=== PATIENT | female | born 1940 | race Caucasian/White ===

== ENCOUNTER 2021-07-15 18:38 | Inpatient (IN) ==
[2021-07-15] MEDS ORDERED: ASPIRIN CHEW 324 MG PO STA (18:44)
--- NOTE | 2021-07-15 18:52 | Emergency Department Note ---
Impression & Plan Retrosternal chest pain, Nausea, Diaphoresis ED Provider Note INFORMANT: Patient and EMS ED PROVIDER(S): Don Finch MD CHIEF COMPLAINT: Chest pain PLAN: Disposition: Admitted Condition: Good Outpatient prescription management: none Referral: None MEDICAL DECISION MAKING: Patient presented after about 3 hours of chest pain. It was resolved per EMS. EMS and our ECG did not reveal any ST elevation or depression. The patient's blood work was obtained. Chest x-ray was negative. She had a unremarkable CBC, chemistry panel, D-dimer, LFTs, and troponin. Patient did have Covid a month ago. No evidence of thrombolic disease by blood testing or chest x-ray. The patient was given aspirin. On reassessment she was doing well. She did not have any chest pain. The patient and I discussed the need for further management in the hospital given the significant description of the episode. Patient was in agreement. Consultation was made with Dr. Dennys Perkins of the [facility] service. Patient was evaluated in the ER for further management. Triage Nursing notes reviewed and agree them. Vital Signs: reviewed and remarkable for mild hypertension Differential diagnosis: Cardiac ischemia, aortic dissection, pulmonary embolism, pneumothorax, pneumonia, pericarditis, myocarditis, esophageal rupture, GERD, cholecystitis, pancreatitis, musculoskeletal, as well as other pathologies. Diagnostics interpreted by me: EC Lead ECG performed and revealed Normal sinus rhythm at 71, normal [place], QRS normal. No elevation or depression. No PACs or PVCs Cardiac Monitoring: Cardiac monitoring ordered by me: The patient was placed on continuous cardiac monitoring and observed. It revealed a normal sinus rhythm at 69 beats per minute without ectopy or evidence of dysrhythmia. Imaging studies: Chest x-ray. Findings: A chest x-ray was performed and revealed no pneumothorax, effusion, infiltrate, pulmonary edema, free air under the diaphragm, or wide mediastinum. Impression: No acute disease. HPI: The patient is a 81 year old female who presents to the Emergency Room with complaints of chest pain. This started 1530 hrs. and is resolved after about 3 hours in duration. The patient also notes the following associated symptoms, nausea, diaphoresis, and pain that radiated to the left arm. The patient has taken no medication for relieving factors. Current pain is rated as 0/10. No prior cardiac history. Patient does have a history of high cholesterol and hypertension. Pt denies LOC, headache, fevers, chills, diaphoresis, visual changes, neck pain, breathing difficulties, vomiting, abdominal pain, back pain, melena, hematochezia, urinary symptoms, numbness, weakness, lymphadenopathy, rash, or other complaints. ROS: See above HPI for pertinent positives & negatives. A total of 10 systems reviewed and were otherwise negative. PAST MEDICAL HISTORY:See Below , hypertension, high cholesterol PAST SURGICAL HISTORY:See Below, FAMILY HISTORY:See Below SOCIAL HISTORY:See Below, no smoking HOME MEDICATIONS:See Below ALLERGIES:See Below VITALS:See Below PHYSICAL EXAMINATION: GENERAL: Awake, alert, well-appearing, in no distress HENT: Normocephalic, atraumatic. Oropharynx unremarkable. EYES: Normal conjunctiva. Sclera non-icteric. NECK: Inspection normal. Non-tender. Supple. No nuchal rigidity. FROM. No masses. RESPIRATORY: Clear to auscultation. No wheezes. No rales. Normal respiratory effort. CARDIAC: Normal rate. Normal rhythm. No murmurs. No rubs. Extremities warm and well perfused. Pulses equal. No JVD. GI: Soft, non-distended. No tenderness to palpation. No rebound or guarding. No masses. RECTAL: Deferred. MUSCULOSKELETAL: Atraumatic. Chest examination reveals no tenderness. The back is symmetrical on inspection without obvious abnormality. There is no CVA tenderness to palpation. No joint edema. LOWER EXTREMITIES: Calves are equal size bilaterally and non-tender. No edema. No discoloration. NEURO: Normal sensorium. No sensory or motor deficits noted. SKIN: No rash or jaundice noted. Don Finch MD Past Med/Surg History Medical History Anxiety Depression Hyperlipidemia Hypertension Hypothyroidism Insomnia resolving Osteoarthritis Surgical History History of colonoscopy History of esophagogastroduodenoscopy (EGD) History of tonsillectomy [place] teeth removed Family History Mother Hypertension Myocardial infarction Other Breast cancer Denies family history of Ovarian cancer Prostate cancer Diabetes Colorectal cancer Social History (Reviewed 07/13/21 @ 11:40 by LONG Saenz Smoking Status: Former smoker Tobacco Type: Cigarettes Number of Years Since Quit: 13; Second Hand Exposure: No; Hx Alcohol Use: Yes Alcohol type: wine Alcohol Intake Frequency Comment: daily Hx Substance Use: No Preferred Language: [place] Citizen Communication Ability: Effective Leather Stamper Required: No Beliefs That Will Affect Care: None marital status: / Current Living Situation: Family Current Living Situation Comment: son and daughter in law. current occupational status: retired How many Children do You have: 2 Feels Safe at Home: Yes Childhood Exposure to Second-Hand Smoke: Yes caffeine: No Dental Care, Regularly: Yes Physical Activity Frequency: Does not Exercise Seatbelt Use: always Sunscreen Use: Yes Assistive Devices: Glasses and Hearing Aid - Bilateral Allergies Allergies Allergy/AdvReac Type Severity Reaction Status Date / Time Sulfa (Sulfonamide Allergy nausea Verified 07/13/21 11:40 Antibiotics) Home Meds Home Medications Medication Instructions Recorded Confirmed atorvastatin 40 mg tablet 40 mg PO PM 06/13/21 07/15/21 cholecalciferol (vitamin D3) 50 50 mcg PO QAM 06/13/21 07/15/21 mcg (2,000 unit) capsule (Vitamin D3) levothyroxine 50 mcg capsule 50 mcg PO QAM 06/13/21 07/15/21 metoprolol tartrate 50 mg tablet 50 mg PO BID 06/13/21 07/15/21 sertraline 50 mg tablet 50 mg PO PM 06/13/21 07/15/21 bromfenac 0.07 % eye drops 1 drp OPR DAILY 07/15/21 07/15/21 (Prolensa) ofloxacin 0.3 % eye drops 1 drp OPR QID 07/15/21 07/15/21 prednisolone acetate 1 % eye 1 drp OPR QID 07/15/21 07/15/21 drops,suspension Previous Rx's Medication Instructions Recorded alprazolam 0.25 mg tablet 0.25 mg PO DAILY PRN #30 tab 06/21/21 Results & Data (ED) Vital Signs Vital Signs - 24 hr 07/15/21 19:05 Temperature 36.8 C Temperature Source Oral Pulse Rate 71 Respiratory Rate 18 Respiratory Effort / Characteristics Non-Labored Respiratory Depth Normal Blood Pressure 167/98 H Blood Pressure Mean 121 Blood Pressure Position Sitting Pulse Oximetry 96 Oxygen Delivery Method Room Air Sepsis Recent Fever Within 48 Hours No Sepsis New/Unexplained Change in Mental Status N/A Sepsis Action Taken by Nursing No Action Required Laboratory Data Result diagrams: 07/15/21 19:00 07/15/21 19:00 Lab Results 07/15/21 07/15/21 07/15/21 Range/Units 19:00 19:00 19:00 WBC 9.93 (4.8-10.8) K/uL RBC 3.93 L (4.2-5.4) M/uL Hgb 12.8 (12.0-16.0) g/dL Hct 38.6 (37-47) % MCV 98.2 (80-100) fL MCH 32.6 (25-34) pg MCHC 33.2 (32-36) g/dL RDW Std Deviation 46.7 H (36.4-46.3) fL RDW Coeff of Erik 12.9 (11.5-14.5) % Plt Count 287 (130-400) K/uL MPV 9.4 (7.4-10.4) fL Immature Gran % (Auto) 0.3 % Neut % (Auto) 56.0 % Lymph % (Auto) 31.0 % [place] % (Auto) 10.4 % Eos % (Auto) 2.1 % Baso % (Auto) 0.2 % Neut # (Auto) 5.56 (1.4-6.5) K/uL Lymph # (Auto) 3.08 (1.2-3.4) K/uL [place] # (Auto) 1.03 H (0.11-0.59) K/uL Eos # (Auto) 0.21 (0-0.5) K/uL Baso # (Auto) 0.02 (0-0.2) K/uL Immature Gran # (Auto) 0.03 H (0.00-0.02) K/uL D-Dimer 310 (0-500) ug/L FEU Sodium 139 (136-145) mmol/L Potassium 3.4 L (3.5-5.1) mmol/L Chloride 107 (98-107) mmol/L Carbon Dioxide 22 (21-32) mmol/L Anion Gap 10 (3-11) BUN 11 (6-23) mg/dl Creatinine 0.66 (0.6-1.2) mg/dl Est Cr Clr Drug Dosing 73.2 ml/min Est GFR ( Amer) 97.4 ml/min Est GFR (Non-Af Amer) 84.0 ml/min BUN/Creatinine Ratio 16.7 (10-20) Glucose 92 (70-99(Fasting)) mg/dl Calcium 8.7 (8.5-10.1) mg/dl Total Bilirubin 0.4 (0.2-1.0) mg/dl AST 19 (13-39) U/L ALT 15 (7-52) U/L Alkaline Phosphatase 100 (34-104) U/L Troponin I < 0.03 (0-0.04) ng/ml Total Protein 6.5 (6.0-8.3) gm/dl Albumin 3.8 (3.4-5.0) gm/dl Globulin 2.7 (2.5-4.0) gm/dl Albumin/Globulin Ratio 1.4 (0.9-2) Lipase 16 (11-82) U/L SARS-CoV-2, RNA, NAAT (NEGATIVE) 07/15/21 Range/Units 19:18 WBC (4.8-10.8) K/uL RBC (4.2-5.4) M/uL Hgb (12.0-16.0) g/dL Hct (37-47) % MCV (80-100) fL MCH (25-34) pg MCHC (32-36) g/dL RDW Std Deviation (36.4-46.3) fL RDW Coeff of Erik (11.5-14.5) % Plt Count (130-400) K/uL MPV (7.4-10.4) fL Immature Gran % (Auto) % Neut % (Auto) % Lymph % (Auto) % [place] % (Auto) % Eos % (Auto) % Baso % (Auto) % Neut # (Auto) (1.4-6.5) K/uL Lymph # (Auto) (1.2-3.4) K/uL [place] # (Auto) (0.11-0.59) K/uL Eos # (Auto) (0-0.5) K/uL Baso # (Auto) (0-0.2) K/uL Immature Gran # (Auto) (0.00-0.02) K/uL D-Dimer (0-500) ug/L FEU Sodium (136-145) mmol/L Potassium (3.5-5.1) mmol/L Chloride (98-107) mmol/L Carbon Dioxide (21-32) mmol/L Anion Gap (3-11) BUN (6-23) mg/dl Creatinine (0.6-1.2) mg/dl Est Cr Clr Drug Dosing ml/min Est GFR ( Amer) ml/min Est GFR (Non-Af Amer) ml/min BUN/Creatinine Ratio (10-20) Glucose (70-99(Fasting)) mg/dl Calcium (8.5-10.1) mg/dl Total Bilirubin (0.2-1.0) mg/dl AST (13-39) U/L ALT (7-52) U/L Alkaline Phosphatase (34-104) U/L Troponin I (0-0.04) ng/ml Total Protein (6.0-8.3) gm/dl Albumin (3.4-5.0) gm/dl Globulin (2.5-4.0) gm/dl Albumin/Globulin Ratio (0.9-2) Lipase (11-82) U/L SARS-CoV-2, RNA, NAAT NEGATIVE (NEGATIVE) Administered Medications Discontinued Medications Aspirin (Aspirin Chew 324 Mg) 324 mg PO NOW STA Stop: 07/15/21 18:45 Last Admin: 07/15/21 19:19 Dose: 324 mg Documented by: [id number] Imaging Data Radiologist's Impression: Chest X-Ray 07/15/21 18:44 XR chest 1V portable CLINICAL HISTORY: Chest Pain. Nonsmoker COMPARISON STUDY: No previous studies for comparison. TECHNIQUE: 1 view of the chest FINDINGS: Single frontal view of the chest demonstrates the cardiomediastinal silhouette to be within normal limits. The lungs are clear of alveolar opacities. There is no evidence for pleural effusion. There is no evidence for vascular congestion. There is no acute osseous pathology. IMPRESSION: No acute cardiopulmonary disease. ACT 112: Negative or not required by law. Electronically signed by: Rufus Cox M.D. 07/15/2021 7:13 PM Discharge Plan Visit Data Chief Complaint: Cardiac Assessment Stated Complaint: CHEST PAIN ED Provider: Don Finch Discharge Problem: Retrosternal chest pain, Nausea, Diaphoresis Forms Stand Alone Forms: [facility] [place] [employer] Prescriptions Prescriptions: No Action alprazolam 0.25 mg tablet 0.25 mg PO DAILY PRN (Reason: anxiety) Qty: 30 RF: 1 cholecalciferol (vitamin D3) [Vitamin D3] 50 mcg (2,000 unit) Capsule 50 mcg PO QAM RF: 0 atorvastatin 40 mg tablet 40 mg PO PM RF: 0 metoprolol tartrate 50 mg tablet 50 mg PO BID RF: 0 sertraline 50 mg tablet 50 mg PO PM RF: 0 levothyroxine 50 mcg capsule 50 mcg PO QAM RF: 0 ofloxacin 0.3 % drops 1 drp OPR QID RF: 0 prednisolone acetate 1 % drops,suspension 1 drp OPR QID RF: 0 Prolensa 0.07 % drops 1 drp OPR DAILY RF: 0 Referrals Referrals: Luisa Ding MD [Primary Care Provider] -
[2021-07-15 19:10] LABS: Basophils # (auto) 0.02 K/uL (0-0.2); Basophils % (auto) 0.2 %; Eosinophils # (auto) 0.21 K/uL (0-0.5); Eosinophils % (auto) 2.1 %; Hematocrit (blood only) 38.6 % (37-47); Hemoglobin 12.8 g/dL (12.0-16.0); Immature Granulocytes # (auto) 0.03 K/uL (0.00-0.02); Immature Granulocytes % (auto) 0.3 %; Lymphocytes # (auto) 3.08 K/uL (1.2-3.4); Mean Corpuscular Hemoglobin 32.6 pg (25-34); Mean Corpuscular Hgb Conc 33.2 g/dL (32-36); Mean Corpuscular Volume 98.2 fL (80-100); Mean Platelet Volume 9.4 fL (7.4-10.4); Monocytes # (auto) 1.03 K/uL (0.11-0.59); Monocytes % (auto) 10.4 %; Neutrophils # (auto) 5.56 K/uL (1.4-6.5); Platelet Count 287 K/uL (130-400); RDW Coefficient of Variation 12.9 % (11.5-14.5); RDW Standard Deviation 46.7 fL (36.4-46.3); Red Blood Count 3.93 M/uL (4.2-5.4); White Blood Count 9.93 K/uL (4.8-10.8)
--- NOTE | 2021-07-15 19:15 | XRay Report ---
XR chest 1V portable CLINICAL HISTORY: Chest Pain. Nonsmoker COMPARISON STUDY: No previous studies for comparison. TECHNIQUE: 1 view of the chest FINDINGS: Single frontal view of the chest demonstrates the cardiomediastinal silhouette to be within normal li mits. The lungs are clear of alveolar opacities. There is no evidence for pleural effusion. There is no evidence for vascular congestion. There is no acute osseous pathology. IMPRESSION: No acute cardiopulmonary disease. ACT 112: Negative or not required by law. Electronically signed by: Rufus Cox M.D. 07/15/2021 7:13 PM
[2021-07-15 19:19] LABS: D Dimer 310 ug/L FEU (0-500)
[2021-07-15 19:35] LABS: Alanine Aminotransferase 15 U/L (7-52); Albumin Globulin Ratio 1.4 (0.9-2); Albumin Level 3.8 gm/dl (3.4-5.0); Alkaline Phosphatase 100 U/L (34-104); Anion Gap 10 (3-11); Aspartate Aminotransferase 19 U/L (13-39); BUN Creatinine Ratio 16.7 (10-20); Bilirubin,Total 0.4 mg/dl (0.2-1.0); Blood Urea Nitrogen 11 mg/dl (6-23); Calcium 8.7 mg/dl (8.5-10.1); Carbon Dioxide 22 mmol/L (21-32); Chloride 107 mmol/L (98-107); Creatinine Clr Calc Pharmacy 73.2 ml/min; Est GFR (African American) 97.4 ml/min; Globulin 2.7 gm/dl (2.5-4.0); Glucose 92 mg/dl (70-99(Fasting)); Lipase 16 U/L (11-82); Potassium 3.4 mmol/L (3.5-5.1); Sodium 139 mmol/L (136-145); Total Protein 6.5 gm/dl (6.0-8.3)
[2021-07-15 19:36] LABS: Troponin I < 0.03 ng/ml (0-0.04)
[2021-07-15] MEDS ORDERED: MAGNESIUM HYDROXIDE SUSP 30 ML UDC PO PRN (20:58)
[2021-07-15] MEDS ORDERED: ALUMINUM/MAGNESIUM SUSP 30 ML UDC PO PRN (20:58)
[2021-07-15] MEDS ORDERED: ACETAMINOPHEN 325 MG TAB PO PRN (20:58)
[2021-07-15] MEDS ORDERED: ONDANSETRON INJ 2 MG/ML 2 ML VIAL IV PRN (20:58)
[2021-07-15] MEDS ORDERED: ALPRAZolam 0.25 MG TABLET PO PRN (20:58)
[2021-07-15] MEDS ORDERED: POLYETHYLENE (MIRALAX) 17 GM PACK PO PRN (20:58)
[2021-07-15] MEDS ORDERED: NON-FORMULARY MEDICATION (Prednisolone Acetate 1 % drops,suspension) OPR SCH (21:00)
[2021-07-15] MEDS ORDERED: SERTRALINE HCL 50 MG TABLET PO SCH (21:00)
[2021-07-15] MEDS ORDERED: ATORVASTATIN 40 MG TAB PO SCH (21:00)
[2021-07-15] MEDS ORDERED: ENOXAPARIN INJ 40 MG/0.4 ML SYR SQ SCH (21:00)
[2021-07-15] MEDS: OFLOXACIN 0.3% 75 DROPS/5 ML BTL OPR SCH (21:22)
--- NOTE | 2021-07-15 22:04 | History & Physical Report ---
Date of Service July 15, 2021 Assessment & Plan (1) Retrosternal chest pain: Plan: 81yo female with a history of HTN, HLD, and hypothyroidism presents to the ED after an episode of sudden-onset chest pain, nausea, and diaphoresis. Chest pain, nausea, diaphoresis Symptoms started suddenly at rest, substernal CP that radiated to the back and left arm, associated nausea and sweating; spontaneously resolved after about two hours Patient denies history of similar symptoms, no CP with rest, no cardiac history beyond HTN and HLD Differential includes ACS, GERD, anxiety, others EKG without ischemic change Troponin on admission negative, will trend q6h x2 Admit to med/surg telemetry for ACS rule out Echo ordered Check lipid profile, A1c Consider cardiology consult HTN BP elevated at times during this admission but currently only slightly elevated Continue home metoprolol HLD Repeat lipid profile ordered Continue home statin Recent cataract surgery Continue home eye drops Depression, anxiety Continue home sertraline, alprazolam FEN: heart healthy diet Code status: full code DVT ppx: lovenox Held home meds: none PT/OT: ordered Dispo: med/surg telemetry (2) Hypothyroidism: (3) Hypertension: (4) Hyperlipidemia: (5) Nausea: Plan: By CMS guidelines, a determination that the admission or continued stay is not medically necessary has been made by a member of the UR committee and a physician for this hospital stay, therefore a Code 44 will be completed and the Inpatient admission will be changed to outpatient. History of Present Illness Primary Care Provider: Luisa Ding MD 81yo female with a history of HTN, HLD, hypothyroidism, depression, anxiety, and recent cataract surgery who presents to the ED after an episode of sudden- onset chest pain, nausea, and diaphoresis. Symptoms began suddenly while patient was at rest, sitting on the couch. Patient describes her symptoms as a sharp 10/10 pain in the center of her chest that radiated to her left arm and sometimes radiated through to her back. Patient did not take anything for her symptoms and decided to "ride them out"; after about two hours, all of patient's symptoms resolved spontaneously. Patient denies fever, chills, headache, loss of consciousness, cough, SOB, vision changes, neck pain, vomiting, abdominal pain, urinary symptoms, melena, hematochezia, numbness, weakness, or tingling. Patient is completely asymptomatic at the time of my evaluation. Patient is a former smoker (quit 15 years ago). Currently drinks about one to two standard-size glasses of wine per day. Denies other recreational substance use. Patient notes a significant family history of cardiac conditions; her mother at 81 from an NH, and "most of the other people on my mom's side of heart attacks but I don't know how old they were". Patient is unsure if her father had any cardiac conditions but notes he at age 87 of complications from COPD. Allergies Allergy/AdvReac Type Severity Reaction Status Date / Time Sulfa (Sulfonamide Allergy nausea Verified 07/13/21 11:40 Antibiotics) Home Medications Medication Instructions Recorded Confirmed Type atorvastatin 40 mg tablet 40 mg PO PM 06/13/21 07/15/21 History cholecalciferol (vitamin D3) 50 50 mcg PO QAM 06/13/21 07/15/21 History mcg (2,000 unit) capsule (Vitamin D3) levothyroxine 50 mcg capsule 50 mcg PO QAM 06/13/21 07/15/21 History metoprolol tartrate 50 mg tablet 50 mg PO BID 06/13/21 07/15/21 History sertraline 50 mg tablet 50 mg PO PM 06/13/21 07/15/21 History alprazolam 0.25 mg tablet 0.25 mg PO DAILY PRN #30 tab 06/21/21 07/15/21 Rx bromfenac 0.07 % eye drops 1 drp OPR DAILY 07/15/21 07/15/21 History (Prolensa) ofloxacin 0.3 % eye drops 1 drp OPR QID 07/15/21 07/15/21 History prednisolone acetate 1 % eye 1 drp OPR QID 07/15/21 07/15/21 History drops,suspension Past Med/Surg History Medical History Anxiety Depression Hyperlipidemia Hypertension Hypothyroidism Insomnia resolving Osteoarthritis Surgical History History of colonoscopy History of esophagogastroduodenoscopy (EGD) History of tonsillectomy [place] teeth removed Family History Mother Hypertension Myocardial infarction Other Breast cancer Denies family history of Ovarian cancer Prostate cancer Diabetes Colorectal cancer Social History Smoking Status: Former smoker Tobacco Type: Cigarettes Number of Years Since Quit: 13; Second Hand Exposure: No; Hx Alcohol Use: Yes Alcohol type: wine Alcohol Intake Frequency Comment: daily Hx Substance Use: No Preferred Language: [place] Communication Ability: Effective Restaurant Supervisor Required: No Beliefs That Will Affect Care: None marital status: / Current Living Situation: Family Current Living Situation Comment: lives in son and daughter in law's basement apartment current occupational status: retired How many Children do You have: 2 Feels Safe at Home: Yes Childhood Exposure to Second-Hand Smoke: Yes caffeine: No Dental Care, Regularly: Yes Physical Activity Frequency: Does not Exercise Seatbelt Use: always Sunscreen Use: Yes Assistive Devices: Glasses Review of Systems Review of Systems: See HPI Physical Exam Physical Exam: Constitutional: well-appearing, no acute distress HEENT: MMM CV: regular rhythm, no murmur appreciated, extremities well-perfused, trace LE edema Resp: CTABL, no wheezes/rales/rhonchi appreciated, no increased work of breathing GI: soft, nondistended, nontender, BS normoactive MSK: no gross deformities appreciated Skin: warm, dry, no rash appreciated Neuro: alert, oriented, no focal neurologic deficit appreciated Psych: cooperative, pleasant, appropriate rate/volume/quantity of speech Results & Data Results & Data ([facility]) Vital Signs (Past 12 Hours) Vital Signs Temp Pulse Pulse Resp BP BP Pulse Ox 07/15/21 20:58 69 19 190/106 H 97 07/15/21 19:05 36.8 C 71 18 167/98 H 96 Code Status & VTE Plan VTE Prophylaxis Plan VTE Prophylaxis will be ordered: Yes Supervising Physician Co-Signing Physician Notes Attending addendum: I have physically seen this patient, have supervised the medical residents activities, and agree with the H&P unless as otherwise noted. Assessment and Plan: Retrosternal chest pain/hypertension- The patient will be admitted to telemetry for serial cardiac enzymes, serial EKG's, cardiac rhythm monitoring and a 2-D echocardiogram with Dopplers. Continue metoprolol tartrate 50 mg p.o. twice daily Aspirin 81 mg every morning Check a fasting lipid panel and hemoglobin A1c Hyperlipidemia- Continue atorvastatin 40 mg every evening Remaining orders and notations as noted Resident Activity Tracking Resident Involvement: Resident Care Provided Care Provided: Adult Hospital Medicine
[2021-07-15] MEDS: METOPROLOL TARTRATE 50 MG TAB PO SCH (22:39)
[2021-07-16 06:19] LABS: Basophils # (auto) 0.03 K/uL (0-0.2); Basophils % (auto) 0.3 %; Eosinophils # (auto) 0.22 K/uL (0-0.5); Eosinophils % (auto) 2.1 %; Hematocrit (blood only) 38.2 % (37-47); Hemoglobin 12.9 g/dL (12.0-16.0); Immature Granulocytes # (auto) 0.03 K/uL (0.00-0.02); Immature Granulocytes % (auto) 0.3 %; Lymphocytes # (auto) 3.72 K/uL (1.2-3.4); Mean Corpuscular Hemoglobin 33.3 pg (25-34); Mean Corpuscular Hgb Conc 33.8 g/dL (32-36); Mean Corpuscular Volume 98.7 fL (80-100); Mean Platelet Volume 9.6 fL (7.4-10.4); Monocytes # (auto) 1.03 K/uL (0.11-0.59); Neutrophils % (auto) 51.3 %; Platelet Count 267 K/uL (130-400); RDW Coefficient of Variation 13.2 % (11.5-14.5); RDW Standard Deviation 47.3 fL (36.4-46.3); Red Blood Count 3.87 M/uL (4.2-5.4); White Blood Count 10.33 K/uL (4.8-10.8)
[2021-07-16 06:45] LABS: Calcium 8.7 mg/dl (8.5-10.1); Chol HDL Ratio 2.8 (0-5); Creatinine Clr Calc Pharmacy 73.3 ml/min; Est GFR (African American) 100.5 ml/min; Est GFR (Non-African American) 86.7 ml/min; Potassium 3.6 mmol/L (3.5-5.1)
[2021-07-16 07:19] LABS: Prothrombin Time 10.4 Seconds (9.0-12.0)
[2021-07-16] MEDS: OFLOXACIN 0.3% 75 DROPS/5 ML BTL OPR SCH ×2 (08:08→13:05)
[2021-07-16] MEDS ORDERED: LEVOTHYROXINE SODIUM 50 MCG TABLET PO SCH (08:30)
[2021-07-16 08:56] LABS: Estimated Average Glucose 111 mg/dl; Hemoglobin A1C 5.5 % (4.5-5.6)
--- NOTE | 2021-07-16 08:56 | Discharge Summary ---
Date of Service July 16, 2021 Admission HPI Per Admitting Provider 81 yo female with a history of HTN, HLD, hypothyroidism, depression, anxiety, and recent cataract surgery who presents to the ED after an episode of sudden- onset chest pain, nausea, and diaphoresis. Symptoms began suddenly while patient was at rest, sitting on the couch. Patient describes her symptoms as a sharp 10/10 pain in the center of her chest that radiated to her left arm and sometimes radiated through to her back. Patient did not take anything for her symptoms and decided to "ride them out"; after about two hours, all of patient's symptoms resolved spontaneously. Patient denies fever, chills, headache, loss of consciousness, cough, SOB, vision changes, neck pain, vomiting, abdominal pain, urinary symptoms, melena, hematochezia, numbness, weakness, or tingling. Patient is completely asymptomatic at the time of my evaluation. Patient is a former smoker (quit 15 years ago). Currently drinks about one to two standard-size glasses of wine per day. Denies other recreational substance use. Patient notes a significant family history of cardiac conditions; her mother at 81 from an LA, and "most of the other people on my mom's side of heart attacks but I don't know how old they were". Patient is unsure if her father had any cardiac conditions but notes he at age 87 of complications from COPD. Admission Exam Per Admitting Provider Constitutional: well-appearing, no acute distress HEENT: MMM CV: regular rhythm, no murmur appreciated, extremities well-perfused, trace LE edema Resp: CTABL, no wheezes/rales/rhonchi appreciated, no increased work of breathing GI: soft, nondistended, nontender, BS normoactive MSK: no gross deformities appreciated Skin: warm, dry, no rash appreciated Neuro: alert, oriented, no focal neurologic deficit appreciated Psych: cooperative, pleasant, appropriate rate/volume/quantity of speech Principal Diagnosis chest pain, GERD vs. anxiety vs. MSK Discharge Exam Constitutional WD/WN, vitals as above Respiratory normal respiratory effort, lungs clear to auscultation Cardiovascular RRR, no murmur, no edema Gastrointestinal (Abdomen) normal bowel sounds, soft, nontender, no hepatosplenomegaly Skin no rashes, warm and dry Psychiatric A+Ox3, euthymic affect Discharge Data Allergies Allergy/AdvReac Type Severity Reaction Status Date / Time Sulfa (Sulfonamide Allergy nausea Verified 07/13/21 11:40 Antibiotics) Consultations 07/15/21 20:12 ED Decision to Admit Stat Hospital Course (1) Retrosternal chest pain: 81 yo F Hx HTN, HLD, hypothyroidism admitted for chest pain rule out. Chest pain, nausea, diaphoresis - Symptoms started suddenly at rest, substernal CP that radiated to the back and left arm, associated nausea and sweating; spontaneously resolved after about two hours. - Patient denies history of similar symptoms, no CP with rest, no cardiac history. - Differential included ACS, GERD, anxiety, MSK. - EKG without ischemic changes. - Troponin x4 negative. - Lipid panel reasonable, continue atorvastatin. - A1c 5.5%. - Echo showed normal LVEF, no wall motion abnormalities. - Recommend discharge with PCP follow up, non-urgent stress test. - Advised trial of famotidine, Tums if symptoms recur and to present to ER if symptoms do not improve with this intervention. HTN: - Continue home metoprolol; follow up outpatient. HLD: - Lipid profile with TC 170, HDL 60, LDL 78. - Continue home statin. Recent cataract surgery: - Continue home eye drops. Depression, anxiety - Continue home sertraline, alprazolam. Dispo: home with self care (2) Hypothyroidism: (3) Hypertension: (4) Hyperlipidemia: (5) Nausea: Total Time Total Time Spent Total Time Spent (In Minutes): <30 Discharge Plan Discharge Items Patient Disposition: Home - Self-Care Reason For Visit: CP Discharge Diagnosis: Chest pain Activity: Resume your previous activity Non-emergency contact: Primary Care Provider Call non-emergency contact if: your symptoms worsen Follow-up/Referrals: Luisa Ding MD [Primary Care Provider] - 07/25/21 11:30 am Diet: Heart Healthy Addtl Attending Provider Instructions: You were admitted to the hospital for evaluation of chest pain. We performed a thorough evaluation to make sure your chest pain was not an emergency. We checked heart enzymes, which tell us if you have had a heart attack. These numbers were negative. We also checked an ultrasound of your heart which did not have any evidence of a heart attack. We feel confident that your symptoms were not due to a heart attack, and we feel it is safe for you to return home. We are most suspicious that your symptoms were due to reflux. If the symptoms occur again try taking acid-reducing medicine such as Pepcid or Tums, and if the symptoms do not get better call your doctor. We would have you follow up with your primary care doctor to have a non-urgent stress test in the future to make sure that the arteries in your heart are healthy. A discharge summary will be sent to your primary care physician to ensure continuity of care. Please bring this discharge summary with you to your next office appointment so that your provider can review it at that time. Follow-up appointments: Make a follow-up appointment with your PCP within the next week. It is very important that you follow up with them shortly after discharge from the hospital. Keep all your follow-up appointments as already scheduled. If you cannot make an appointment, notify your provider. Medications: Your medication list has been reviewed and reconciled upon discharge to ensure accuracy and continuity of care. An updated list of all your medications is included with your hospital discharge paperwork. Please review this list closely, and make note of any changes. No medication changes were made during your hospital stay. CONTACT YOUR PRIMARY CARE PROVIDER if you experience any of the following: Chest pain, at rest or with exertion. Difficulty following your treatment plan, or difficulty taking medications. CALL 911 OR GO TO THE EMERGENCY DEPARTMENT if you experience any of the following: Sudden, severe abdominal pain or nausea/vomiting. Severe chest pain, or chest pain that radiates (moves) to your jaw or arm. Sudden, severe shortness of breath or difficulty breathing. Thank you for allowing us to participate in your care. Pending Studies at Discharge: No Stand-Alone Forms: [facility] [employer], Smoking Cessation Medications and DC Order Prescriptions: Continued alprazolam 0.25 mg tablet 0.25 mg PO DAILY PRN (Reason: anxiety) Qty: 30 RF: 1 cholecalciferol (vitamin D3) [Vitamin D3] 50 mcg (2,000 unit) Capsule 50 mcg PO QAM RF: 0 atorvastatin 40 mg tablet 40 mg PO PM RF: 0 metoprolol tartrate 50 mg tablet 50 mg PO BID RF: 0 sertraline 50 mg tablet 50 mg PO PM RF: 0 levothyroxine 50 mcg capsule 50 mcg PO QAM RF: 0 ofloxacin 0.3 % drops 1 drp OPR QID RF: 0 prednisolone acetate 1 % drops,suspension 1 drp OPR QID RF: 0 Prolensa 0.07 % drops 1 drp OPR DAILY RF: 0 Discharge Orders: Discharge Order (Routine); Ordered 07/16/21 Ordered By: Linda Miller Admission Data Admit Date/Time: 07/15/21 22:04 Attending Provider: Kartik Roth Admit Provider: Sarabjit Mckeon Primary Care Provider: Luisa Ding Other Providers: Dennys Perkins Other Interventions: Discharge Summary Assessment (RN) Last Done: 07/16/21 13:01 Supervising Physician Co-Signing Physician Notes I personally examined the patient and verified all saldaña points of history and exam, discussed case, and agree with decision making with Dr Miller feeling better pain resolved. confirmed that it did last ~2hrs unremitting before finally letting up vitals noted nad heent nc at mmm breathing unlabored no accessory muscles good effort skin no rashes no pallor or icterus EKG NSR. trop neg x 3 chest pain - neg for LA. really reassuring given that her sx lasted for ~2hrs unremitting and trops neg. most likely UGI vs lesser likely rib. given her concern, while safe for home, would be reasonable to pursue stress echo as outpt, but also again with duration of sx and negative troponins, not entirely necessary for this particular episode. otherwise as above Resident Activity Tracking Resident Involvement: Resident Care Provided Care Provided: Adult Hospital Medicine
[2021-07-16] MEDS ORDERED: BROMFENAC 0.07% OPR SCH (09:00)
[2021-07-16] MEDS ORDERED: NON-FORMULARY MEDICATION (Cholecalciferol (Vitamin D3) [Vitamin D3] 50 mcg (2,000 unit) Ca PO SCH (09:00)
[2021-07-16] MEDS ORDERED: prednisoLONE acetate 1% OP SUSP 5 ML BTL OP SCH (09:00)
[2021-07-16] MEDS ORDERED: CHOLECALCIFEROL 1,000 UNITS 25 MCG TAB PO SCH (09:00)
[2021-07-16] MEDS ORDERED: PROLENSA-NON-FORMULARY PATIENT'S OWN MED OPR SCH (09:00)
[2021-07-16] MEDS: METOPROLOL TARTRATE 50 MG TAB PO SCH (09:07)
[2021-07-16] MEDS: prednisoLONE acetate 1% OP SUSP 5 ML BTL OPR SCH ×2 (09:08→13:04)
--- NOTE | 2021-07-16 09:54 | XCELERA ---
[id number]
--- NOTE | 2021-07-16 10:14 | Electrocardiogram Report ---
Test Reason : Blood Pressure : / mmHG Vent. Rate : 066 BPM Atrial Rate : 066 BPM P-R Int : 198 ms QRS Dur : 076 ms QT Int : 402 ms P-R-T Axes : -05 006 015 degrees QTc Int : 421 ms Normal sinus rhythm Diffuse Minor Nonspecific ST abnormality Abnormal ECG When compared with ECG of 15-JUL-2021 18:45, No significant change was found Confirmed by Vimal Preciado ([id number]) on 07/16/2021 10:14:22 AM Referred By: REFERRED SELF Confirmed By:Vimal Preciado
--- NOTE | 2021-07-16 10:14 | Electrocardiogram Report ---
Test Reason : Blood Pressure : / mmHG Vent. Rate : 071 BPM Atrial Rate : 071 BPM P-R Int : 204 ms QRS Dur : 080 ms QT Int : 396 ms P-R-T Axes : -01 003 016 degrees QTc Int : 430 ms Normal sinus rhythm Diffuse Minor Nonspecific ST abnormality Abnormal ECG No previous ECGs available Confirmed by Vimal Preciado ([id number]) on 07/16/2021 10:14:11 AM Referred By: REFERRED SELF Confirmed By:Vimal Preciado
--- NOTE | 2021-07-16 12:42 | Communication Note ---
Date of Service: July 16, 2021 By CMS guidelines, a determination that the admission or continued stay is not medically necessary has been made by a member of the UR committee and a ph ysician for this hospital stay, therefore a Code 44 will be completed and the Inpatient admission will be changed to outpatient. Demetrice Velez M.D.
--- NOTE | 2021-07-16 16:53 | Billing Data ---
Date of Service July 16, 2021 Coding Level of Care Code 82352 OBS Care - Discharge
--- NOTE | 2021-07-17 04:37 | Billing Data ---
Date of Service July 17, 2021 Coding Level of Care Code INT OBSERVATION CARE 70M LVL 3
[2021-07-17] MEDS ORDERED: LEVOTHYROXINE SODIUM 50 MCG TABLET PO SCH (06:30)
== END 2021-07-16 15:01 | disposition home or self-care (01) | DRG 392 ==
LOC: ED 18:38 → SUATTDRO 22:04 → EDINP 22:04 → INTOOBSV 22:04 → OBSVTOIN 22:04 → 2S 07-16